=== PATIENT | female | born 1955 | race Caucasian/White ===

== ENCOUNTER 2017-11-27 13:57 | Emergency (ER) | payer OTHER ==
[~2017-11-27] VITALS: Ht 180.3 cm; Wt 121.1 kg
[~2017-11-27 13:57] MED LIST: ADVAIR DISKUS; AMOX1TAB12 PO; ATARAX25 MG PO; ATRIPLA TABLET1 TAB; AZITHROMYCIN250 MG; BUPROPION XL150 MG; CATAFLAM50 MG PO; COZAAR25 MG; DIVALPROEX SOD500 M1; GLUCOPHAGE XR500 MG; GUAIFENESIN DM118 ML PO; LIPITOR20 MG; LISINOPRIL20 MG; LOVAZA1 G; MEDROLPACK PO; MONTELUKAST SOD10 MG; TRAZODONE HCL50 MG; TUSSI-PRES LIQ118 ML PO; VITAMIN A & D113 GM; ZITHROMAX500 MG PO; ZYRTEC10 MG PO
== END 2017-11-27 17:10 | disposition home or self-care (01) ==
LOC: ER 13:57
DX: M51.27 Other intervertebral disc displacement, lumbosacral region (principal)

== ENCOUNTER 2017-12-17 14:00 | Emergency (ER) | payer OTHER ==
[~2017-12-17] VITALS: Ht 180.3 cm; Wt 127.0 kg
== END 2017-12-17 15:01 | disposition home or self-care (01) ==
LOC: ER 14:00
DX: M62.830 Muscle spasm of back (principal); M62.838 Other muscle spasm

== ENCOUNTER 2018-06-30 13:20 | Emergency (ER) | payer OTHER ==
[~2018-06-30] VITALS: Ht 180.3 cm; Wt 131.5 kg
== END 2018-06-30 20:51 | disposition home or self-care (01) ==
LOC: ER 13:20
DX: J22 Unspecified acute lower respiratory infection (principal); B20 Human immunodeficiency virus [HIV] disease

== ENCOUNTER 2018-07-31 12:36 | Emergency (ER) | payer OTHER ==
[~2018-07-31] VITALS: Ht 180.3 cm; Wt 133.8 kg
== END 2018-07-31 19:00 | disposition home or self-care (01) ==
LOC: ER 12:36
DX: R60.0 Localized edema (principal); R23.3 Spontaneous ecchymoses; M79.662 Pain in left lower leg; M79.661 Pain in right lower leg

== ENCOUNTER 2019-03-06 16:04 | Emergency (ER) | payer OTHER ==
[~2019-03-06] VITALS: Ht 180.3 cm; Wt 131.5 kg
== END 2019-03-06 22:54 | disposition home or self-care (01) ==
LOC: ER 16:04
DX: R42 Dizziness and giddiness (principal)

== ENCOUNTER 2019-10-03 10:14 | Emergency (ER) | payer OTHER ==
[~2019-10-03] VITALS: Ht 180.3 cm; Wt 111.6 kg
[2019-10-03] MEDS ORDERED: MICROZIDE12.5 MG (10:33)
== END 2019-10-03 11:38 | disposition home or self-care (01) ==
LOC: ER 10:14
DX: R07.89 Other chest pain (principal); M94.0 Chondrocostal junction syndrome [Tietze]

== ENCOUNTER 2019-10-11 18:56 | Emergency (ER) | payer OTHER ==
[~2019-10-11] VITALS: Ht 180.3 cm; Wt 116.1 kg
[~2019-10-11 18:56] MED LIST changes: +MICROZIDE12.5 MG
[2019-10-11] MEDS ORDERED: ASA81 MG PO (19:12)
[2019-10-11] MEDS ORDERED: PLAVIX75 MG PO (19:13)
[2019-10-11] MEDS ORDERED: SINGULAIR10 MG PO (19:14)
== END 2019-10-11 20:29 | disposition home or self-care (01) ==
LOC: ER 18:56
DX: M54.5 Low back pain (principal)

== ENCOUNTER → 2020-03-26 | Emergency (ER) | payer OTHER ==
[~2020-03-26] VITALS: Ht 180.3 cm; Wt 122.5 kg
[~2020-03-26] MED LIST changes: +ASA81 MG PO; +KETO10TA2 PO; +PLAVIX75 MG PO; +SINGULAIR10 MG PO
== END | disposition home or self-care (01) ==
LOC: ER 13:16
DX: S93.491A Sprain of other ligament of right ankle, initial encounter (principal); S50.12XA Contusion of left forearm, initial encounter; S80.01XA Contusion of right knee, initial encounter; R42 Dizziness and giddiness; W18.39XA Other fall on same level, initial encounter; Y93.89 Activity, other specified; Y92.018 Other place in single-family (private) house as the place of occurrence of the external cause; Y99.8 Other external cause status

== ENCOUNTER 2020-05-28 23:48 | Emergency (ER) | payer OTHER ==
[~2020-05-28] VITALS: Ht 180.3 cm; Wt 117.9 kg
[2020-05-29] MEDS ORDERED: KETO10TA2 PO (04:07)
== END 2020-05-29 04:53 | disposition home or self-care (01) ==
LOC: ER 23:48
DX: M79.671 Pain in right foot (principal); M77.51 Other enthesopathy of right foot and ankle

== ENCOUNTER 2020-05-31 15:49 | Emergency (ER) | payer OTHER ==
[~2020-05-31] VITALS: Ht 180.3 cm; Wt 117.9 kg
[2020-05-31] MEDS ORDERED: ULTRACET PO (18:42)
[2020-05-31] MEDS ORDERED: CELEBREX100 MG PO (18:42)
== END 2020-05-31 18:47 | disposition home or self-care (01) ==
LOC: ER 15:49
DX: S93.491A Sprain of other ligament of right ankle, initial encounter (principal); S30.0XXA Contusion of lower back and pelvis, initial encounter; S80.01XA Contusion of right knee, initial encounter; W18.09XA Striking against other object with subsequent fall, initial encounter; Y93.89 Activity, other specified; Y92.018 Other place in single-family (private) house as the place of occurrence of the external cause; Y99.8 Other external cause status

== ENCOUNTER 2021-06-30 12:55 | Emergency (ER) | payer OTHER ==
[~2021-06-30] VITALS: Ht 180.3 cm; Wt 117.9 kg
[~2021-06-30 12:55] MED LIST changes: -AMOX-CLAV 875-1 EACH PO; -LIPITOR40 M1; -ULTRAM50 MG PO; -ZESTRIL40 M1
[2021-06-30] MEDS ORDERED: LIPITOR40 M1 (13:05)
[2021-06-30] MEDS ORDERED: ZESTRIL40 M1 (13:05)
[2021-06-30] MEDS ORDERED: AMOX-CLAV 875-1 EACH PO (16:11)
[2021-06-30] MEDS ORDERED: ULTRAM50 MG PO (16:12)
== END 2021-06-30 16:36 | disposition home or self-care (01) ==
LOC: ER 12:55
DX: R60.0 Localized edema (principal)

== ENCOUNTER → 2021-06-30 | Emergency (ER) | payer OTHER ==
[~2021-06-30] VITALS: Ht 180.3 cm; Wt 120.2 kg
[~2021-06-30] MED LIST changes: +AMOX-CLAV 875-1 EACH PO; +CELEBREX100 MG PO; +LIPITOR40 M1; +ULTRACET PO; +ULTRAM50 MG PO; +ZESTRIL40 M1
== END | disposition home or self-care (01) ==
LOC: ER 01:55
DX: R60.0 Localized edema (principal)

== ENCOUNTER 2022-11-07 06:57 | Emergency (ER) | payer OTHER ==
[~2022-11-07] VITALS: Ht 180.3 cm; Wt 122.5 kg
[~2022-11-07 06:57] MED LIST changes: +AMOX-CLAV 875-1 EACH PO; +LIPITOR40 M1; +ULTRAM50 MG PO; +ZESTRIL40 M1
[2022-11-07] MEDS ORDERED: CRESTOR5 MG (07:25)
[2022-11-07] MEDS ORDERED: ZANAFLEX4 M1 PO (10:50)
[2022-11-07] MEDS ORDERED: NAPROXEN500 MG PO (10:50)
== END 2022-11-07 11:10 | disposition home or self-care (01) ==
LOC: ER 06:57
DX: M54.9 Dorsalgia, unspecified (principal); W18.39XA Other fall on same level, initial encounter; Y93.9 Activity, unspecified; Y92.9 Unspecified place or not applicable

== ENCOUNTER 2023-05-14 03:01 | Emergency (ER) | payer OTHER ==
[~2023-05-14] VITALS: Ht 180.3 cm; Wt 120.2 kg
[~2023-05-14 03:01] MED LIST changes: +CRESTOR5 MG; +NAPROXEN500 MG PO; +ZANAFLEX4 M1 PO
[2023-05-14] MEDS ORDERED: LIPITOR40 M1 PO (03:46)
[2023-05-14] MEDS ORDERED: LEVOTHYROXINE25 MCG PO (03:47)
[2023-05-14] MEDS ORDERED: CRESTOR40 MG PO (03:47)
[2023-05-14] MEDS ORDERED: NEURONTIN600 M1 PO (03:48)
[2023-05-14] MEDS ORDERED: PLAVIX75 MG PO (03:48)
[2023-05-14] MEDS ORDERED: [UNRECOGNIZED DRUG - OTHER] PO (03:49)
== END 2023-05-14 07:25 | disposition home or self-care (01) ==
LOC: ER 03:01
DX: M54.16 Radiculopathy, lumbar region (principal); Z91.018 Allergy to other foods

== ENCOUNTER 2024-01-14 05:23 | Emergency (ER) | payer OTHER ==
[~2024-01-14] VITALS: Ht 177.8 cm; Wt 115.7 kg
[~2024-01-14 05:23] MED LIST changes: +CRESTOR40 MG PO; +LEVOTHYROXINE25 MCG PO; +LIPITOR40 M1 PO; +NEURONTIN600 M1 PO; +[UNRECOGNIZED DRUG - OTHER] PO
[2024-01-14] MEDS ORDERED: HYDROCODONE/CHLORPHEN P-STIREX 5 ML ML PO STA (06:08)
[2024-01-14] MEDS ORDERED: KETOROLAC TROMETHAMINE 60 MG VIAL IM STA (06:08)
[2024-01-14 07:49] LABS: HEMATOCRIT 33.8 % (36.0-45.00); HEMOGLOBIN 11.2 g/dL (12.0-15.00); MEAN CELL VOLUME 89.9 fL (80.00-100.00); MEAN CORPUSCULAR HEMOGLOBIN 29.7 pg (27.00-32.0); PLATELET COUNT 319 K/uL (150-450); RED BLOOD COUNT 3.76 M/uL (4.00-6.00); RED CELL DISTRIBUTION WIDTH 14.5 % (11.5-14.5)
== END 2024-01-14 08:12 | disposition home or self-care (01) ==
LOC: ER
DX: U07.1 COVID-19 (principal)
CPT/HCPCS: 36415; 96372; 99282; J1885